=== PATIENT | male | born 1965 | race African-American/Black ===

== ENCOUNTER 2019-09-18 10:44 | Emergency (ER) | payer OTHER ==
[~2019-09-18] VITALS: Ht 172.7 cm; Wt 90.0 kg
[2019-09-18] MEDS ORDERED: FLEXERIL PO (12:38)
[2019-09-18] MEDS ORDERED: ULTRAM50 M1 PO (12:38)
[2019-09-18 13:28] VITALS: BP 123/72
[2019-09-18] MEDS ORDERED: no home meds (13:30)
== END 2019-09-18 13:28 | disposition home or self-care (01) | DRG 552 ==
LOC: ED 10:44
DX: M54.5 Low back pain (principal); V53.6XXA Passenger in pick-up truck or van injured in collision with car, pick-up truck or van in traffic accident, initial encounter